=== PATIENT | male | born 1960 | race Caucasian/White ===

== ENCOUNTER 2018-12-03 07:18 | Emergency (ER) | payer OTHER ==
[2018-12-03 07:24] VITALS: BP 137/83; PULSE 70; TEMP 98.1; BMI 31.7
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
[2018-12-03] MEDS ORDERED: CYCLOBENZAPRINE HCL 10 MG TABLET (FP) PO ONE (07:43)
[2018-12-03] MEDS ORDERED: KETOROLAC TROMETHAMINE 60 MG/2 ML VIAL IM ONE (07:43)
[2018-12-03] MEDS ORDERED: KETOROLAC TROMETHAMINE 60 MG/2 ML VIAL ONE (07:46)
[2018-12-03] MEDS ORDERED: CYCLOBENZAPRINE HCL 10 MG TABLET (FP) ONE (07:46)
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
--- NOTE | 2018-12-03 07:58 | PDOC ---
*Physical Exam - Vital Signs Last Vital Signs Temp Pulse Resp BP Pulse Ox 98.1 F 70 18 137/83 97 12/03/18 07:20 12/03/18 07:20 12/03/18 07:20 12/03/18 07:20 12/03/18 07:20 ED Treatment Course - Medications Given in the ED: ED Medications Discontinued Medications Generic Name Dose Route Start Last Admin Trade Name Freq PRN Reason Stop Dose Admin Cyclobenzaprine HCl 10 mg 12/03/18 07:43 12/03/18 07:50 Flexeril - PO 12/03/18 07:44 10 mg ONCE ONE Administration Ketorolac Tromethamine 60 mg 12/03/18 07:43 12/03/18 07:50 Toradol Injection - IM 12/03/18 07:44 60 mg ONCE ONE Administration Medical Decision Making - Medical Decision Making 12/03/18 07:58 Pt seen by the Advanced Practice Provider under my direct supervision Ancillary studies reviewed I agree with plan as outlined by the Advanced Practice Provider INOCENCIA Estevez *DC/Admit/Observation/Transfer Diagnosis at time of Disposition: Lumbago without sciatica - Discharge Dispostion Disposition: HOME Condition at time of disposition: Stable - Prescriptions Prescriptions: Lidocaine 5% Patch [Lidoderm -] 1 patch TP DAILY PRN #30 patch PRN Reason: Back Pain Methocarbamol [Robaxin -] 500 mg PO BID PRN #14 tablet PRN Reason: Back Pain Naproxen 500 mg PO BID PRN #20 tablet PRN Reason: Back Pain - Referrals Referrals: Raciel Caba DO [Staff Physician] - - Patient Instructions Printed Discharge Instructions: DI for Low Back Pain Additional Instructions: Your x-ray shows straightening of spine which is consistent with back spasm. Take prescribed medications as needed for back pains. Rest lower back and no heavy lifting for the next 4 days. Apply heat to lower back 2-3 times per day as needed for back pain. Follow-up with referred orthopedics if no improvement in 5 days - Post Discharge Activity Forms/Work/School Notes: Back to Work
== END 2018-12-03 10:33 | disposition home or self-care (01) ==
LOC: JER 07:18
PROC: 3E0233Z Introduction of Anti-inflammatory into Muscle, Percutaneous Approach (ICD-10-PCS; principal; 2018-12-03)
DX: M62.830 Muscle spasm of back (principal); M54.5 Low back pain; V43.52XA Car driver injured in collision with other type car in traffic accident, initial encounter; Y92.414 Local residential or business street as the place of occurrence of the external cause; Y93.89 Activity, other specified; Y99.8 Other external cause status
CPT/HCPCS: 72100-TC-FY; 99282-25